=== PATIENT | male | born 2000 | race Caucasian/White ===

== ENCOUNTER → 2021-08-28 14:52 | Outpatient (CLI) | payer OTHER, SELFPAY ==
--- NOTE | 2021-08-28 | DI.CT.S_ITS ---
PROCEDURE: CT UE RT WO CON INDICATIONS: DISPLACED FRACTURE TECHNIQUE: Noncontrast 1 mm axial sections acquired through the carpal bones, with coronal and sagittal reformats. COMPARISON: None. FINDINGS: Image quality: Excellent. Bones: Mildly impacted fracture of the distal pole the scaphoid. There is dorsal angulation of the lunate raising possibility of dorsal intercalated segmental instability. However accurate scapholunate angle measurement is precluded by fracture deformity. No definite widening of the scapholunate interval. Soft tissues: The visualized muscles and tendons appear grossly unremarkable. There is subcutaneous soft tissue swelling. IMPRESSION: Displaced, impacted scaphoid fracture. Dictated by: Arron Crawley M.D. on 08/29/2021 at 9:04 Approved by: Arron Crawley M.D. on 08/29/2021 at 9:14
== END ==
PROVIDERS: Referring Provider Physician Assistant Surgical; Visit Provider Physician Assistant Surgical
DX: S62.011A Displaced fracture of distal pole of navicular [scaphoid] bone of right wrist, initial encounter for closed fracture (principal); X58.XXXA Exposure to other specified factors, initial encounter
CPT/HCPCS: 73200